=== PATIENT | female | born 1970 | race American Indian/Alaskan Native ===

== ENCOUNTER 2021-03-10 18:50 | Emergency (ER) | payer SELFPAY ==
[2021-03-10 23:05] VITALS: BP 167/82
--- NOTE | 2021-03-10 23:42 | Emergency Department Report ---
ED General Adult HPI - General Chief complaint: Extremity Injury, Lower Stated complaint: PAIN AND BURNING IN BOTH FEET Time Seen by Provider: 03/10/21 23:12 Source: patient Mode of arrival: Ambulatory Limitations: No Limitations - History of Present Illness Initial comments: 51-year-old female patient with history of diabetes, hypertension, hyperlipidem ia, and congestive heart failure presents to the emergency department with complaints of an acute exacerbation of painful chronic bilateral lower extremity swelling and paresthesias since starting a new job last week. Patient states symptoms are worse after weightbearing all day despite wearing compression socks. Patient is compliant with her medications. Patient's primary care provider is in [place]. She last saw her primary care provider in November. She does not have a primary care provider in the [place]. Denies fever, chest pain, shortness of breath, cough, wheezing, orthopnea, palpitations, syncope. Denies all other complaints at this time. - Related Data Previous Rx's Medication Instructions Recorded Last Taken Type Potassium Chloride 20 meq PO QDAY 14 Days packet 03/11/21 Unknown Rx ED Review of Systems ROS: Stated complaint: PAIN AND BURNING IN BOTH FEET Other details as noted in HPI Other: GENERAL: Negative for fever, chills, weight change, anorexia, fatigue. ENT: Negative for ear pain, difficulty hearing, sore throat, nasal congestion, epistaxis. CARDIOVASCULAR: Positive for lower extremity swelling. PULMONARY: Negative for cough, dyspnea, wheezing, orthopnea, cyanosis. GASTROINTESTINAL: Negative for abdominal pain, nausea, vomiting, diarrhea, constipation. MUSCULOSKELETAL: Positive for leg pain. NEUROLOGICAL: Positive for paresthesias. INTEGUMENTARY: Negative for erythema, rash, diaphoresis, laceration, ecchymosis. HEMATOLOGICAL: Negative for hemoptysis, hematemesis, hematochezia, hematuria. PSYCHIATRIC: Negative for hallucinations, suicidal ideation, homicidal ideation, anxiety, depression. ED Past Medical Hx - Medications Home Medications: Home Medications Medication Instructions Recorded Confirmed Last Taken Type Potassium Chloride 20 meq PO QDAY 14 Days packet 03/11/21 Unknown Rx ED Physical Exam - General Limitations: No Limitations - Other Other exam information: General: Awake, appropriately interactive, no acute distress. Neck: Supple. Full range of motion intact. Cardiovascular: Regular rate and rhythm. Normal peripheral perfusion. Symmetrical bilateral pedal and pretibial pitting edema. Pulmonary: No respiratory distress. Clear to auscultation bilaterally. Patient is speaking normally without use of accessory muscles. Skin: No apparent rashes or lesions. Neurological: No facial asymmetry. Speech is clear. Follows commands. Patient is alert and oriented. Musculoskeletal: Moves all four extremities spontaneously with normal range of motion. Psych: Cooperative. Appropriate mood and affect. ED Course Vital Signs 03/10/21 23:04 Temperature 98.2 F Pulse Rate 59 L Respiratory 18 Rate Blood Pressure 167/82 O2 Sat by Pulse 100 Oximetry ED Medical Decision Making - Lab Data Result diagrams: 03/11/21 00:30 03/11/21 00:30 - Medical Decision Making Differential diagnosis including but not limited to: dehydration, electrolyte abnormality, anemia, congestive heart failure, deep vein thrombosis, peripheral vascular disease, nephrotic syndrome, hepatic failure, renal failure On evaluation, patient remains stable. Labs show hyperglycemia and mild hypokalemia without clinical evidence to suggest DKA. No chest pain, no dyspnea, no hypoxia, no respiratory distress, no neurological deficits. No clinical indication for further diagnostic work-up on an emergent basis at this time. Patient will be discharged home to continue her medications as previously prescribed and follow-up with local primary care provider this week. Encouraged patient to continue wearing compression socks and reduce dietary sodium intake. Patient expressed understanding and is agreeable to plan of care. Lifestyle modifications discussed. Strict return precautions provided. Repeat exam is unremarkable and benign. History, exam, diagnostic testing, and current condition do not suggest worrisome pathology to warrant further testing, continued ED treatment, admission, or surgical evaluation at this point. Given the low probability of a significant medical illness, it would be more likely to result in harm than benefit to perform further testing at this stage. Discussed findings, presumptive diagnosis, need for follow-up and specific signs/symptoms that should prompt immediate return to the emergency department. Instructions were explained in detail to the patient in addition to giving written discharge information. Patient expressed understanding and was given the opportunity to ask questions, all of which were satisfactorily answered prior to discharge home. Critical care attestation.: If time is entered above; I have spent that time in minutes in the direct care of this critically ill patient, excluding procedure time. ED Disposition Clinical Impression: Peripheral edema, Hyperglycemia, Hypokalemia Disposition: 01 HOME / SELF CARE / HOMELESS Is pt being admited?: No Does the pt Need Aspirin: No Condition: Stable Instructions: Peripheral Edema, Hypokalemia Additional Instructions: Lab results show elevated blood glucose level and low potassium. The rest of your labs are within normal limits. Increase your dietary intake of potassium rich foods. Take potassium as directed. Continue all other medications as previously prescribed. Drink plenty of fluids. Limit your dietary sodium intake to reduce the swelling in your legs. Elevate your legs as often as possible to reduce swelling. Wear compression socks to reduce swelling. You must follow-up with a local primary care provider for definitive management of ongoing lower extremity swelling. Call today to schedule an appointment. See referral information below. Return to the emergency department immediately for new or worsening symptoms. Specifically, return to the emergency department immediately for fever, chest pain, shortness of breath, palpitations, mental status changes, or any other concerns. Prescriptions: Potassium Chloride 20 meq PO QDAY 14 Days packet Referrals: DEEPIKA OBRIEN MD [Staff Physician] - 3-5 Days [facility] [Outside] - 3-5 Days [facility] [Outside] - 3-5 Days [facility] [Outside] - 3-5 Days [facility] [Provider Group] - 3-5 Days Time of Disposition: 01:32
[2021-03-11 01:01] LABS: Basophils # (Auto) 0.1 K/mm3 (0.0-0.1); Eosinophils # (Auto) 0.4 K/mm3 (0.0-0.4); Eosinophils % (Auto) 5.3 % (0.0-4.3); Hematocrit 35.8 % (30.3-42.9); Hemoglobin 11.9 gm/dl (10.1-14.3); Lymphocytes % (Auto) 30.4 % (13.4-35.0); Mean Corpuscular HGB Conc 33 % (30-34); Mean Corpuscular Volume 83 fl (79-97); Monocytes # (Auto) 0.5 K/mm3 (0.0-0.8); Platelet Count 298 K/mm3 (140-440); Red Blood Count 4.31 M/mm3 (3.65-5.03); Red Cell Distribution Width 14.9 % (13.2-15.2)
[2021-03-11 01:17] LABS: Alanine Aminotransferase 26 units/L (7-56); Albumin 4.1 g/dL (3.9-5); Blood Urea Nitrogen 17 mg/dL (7-17); Calcium 9.2 mg/dL (8.4-10.2); Hemolysis Index 1
[2021-03-11 01:20] LABS: BUN/Creatinine Ratio 28
== END 2021-03-11 03:17 | disposition home or self-care (01) ==
LOC: ED 18:50
DX: R60.0 Localized edema (principal); R73.9 Hyperglycemia, unspecified; E87.6 Hypokalemia
CPT/HCPCS: 36415; 80053; 83735; 85025; 99283